=== PATIENT | female | born 1980 | race Asian ===

== ENCOUNTER 2021-01-16 10:04 | Emergency (ER) | payer OTHER, BC ==
[2021-01-16 10:09] VITALS: BP 146/90; PULSE 115; TEMP 98.5; BMI 27.4
[2021-01-16] MEDS ORDERED: ONDANSETRON *ODT* 4 MG TABLET SL ONE (10:55)
[2021-01-16] MEDS ORDERED: KETOROLAC TROMETHAMINE 30 MG/1 ML VIAL IM ONE (10:55)
[2021-01-16] MEDS ORDERED: ONDANSETRON *ODT* 4 MG TABLET ONE (10:59)
[2021-01-16] MEDS ORDERED: KETOROLAC TROMETHAMINE 30 MG/1 ML VIAL ONE (10:59)
== END 2021-01-16 12:30 | disposition home or self-care (01) ==
LOC: JER 10:04
PROC: 3E0233Z Introduction of Anti-inflammatory into Muscle, Percutaneous Approach (ICD-10-PCS; principal; 2021-01-16)
DX: S13.4XXA Sprain of ligaments of cervical spine, initial encounter (principal); V87.7XXA Person injured in collision between other specified motor vehicles (traffic), initial encounter; Y92.9 Unspecified place or not applicable
CPT/HCPCS: 99284-25; Q0162